=== PATIENT | male | born 1970 | race Caucasian/White ===

== ENCOUNTER 2025-08-06 12:03 | Emergency (ER) | payer OTHER ==
[~2025-08-06] VITALS: Ht 167.6 cm; Wt 91.0 kg
[2025-08-06 12:07] VITALS: O2SAT 100
[2025-08-06] MEDS ORDERED: DICL387C TP (13:29)
[2025-08-06] MEDS ORDERED: ACET-2708 MT (13:29)
[2025-08-06] MEDS: KETOROLAC 30MG/ML VIAL IM ONE (13:49)
[2025-08-06] MEDS: ACETAMINOPHEN 500MG TABLET PO ONE (13:49)
[2025-08-06 13:54] VITALS: BP 134/78; PULSE 64; RESP 18; TEMP 36.6; O2SAT 100
== END 2025-08-06 14:04 | disposition home or self-care (01) ==
LOC: ER 12:03
DX: M25.562 Pain in left knee (principal); M25.561 Pain in right knee; Z95.2 Presence of prosthetic heart valve; W18.30XA Fall on same level, unspecified, initial encounter; Y93.89 Activity, other specified; Y92.89 Other specified places as the place of occurrence of the external cause; Y99.8 Other external cause status
CPT/HCPCS: 73562; 96372; 99283; J1885; Z7610